=== PATIENT | female | born 1945 | race Caucasian/White ===

== ENCOUNTER 2021-03-10 05:51 | Day surgery (SDC) | payer MEDICARE, BC ==
[2021-03-03 15:35] LABS: BASOPHILS # (AUTO) 0.1 X10'3 (0-0.2); BASOPHILS % (AUTO) 1.3 % (0-1); EOSINOPHILS # (AUTO) 0.2 X10'3 (0-0.9); LYMPHOCYTES % (AUTO) 25.2 % (21-51); MEAN CORPUSCULAR HGB CONC 32.7 g/dL (33.0-36.5); MEAN CORPUSCULAR VOLUME 85.6 FL (78-98); MEAN PLATELET VOLUME 8.8 FL (7.4-10.4); MONOCYTES # (AUTO) 0.7 X10'3 (0-0.9); MONOCYTES % (AUTO) 9.1 % (2-12); NEUTROPHILS # (AUTO) 4.8 X10'3 (1.8-7.7); NEUTROPHILS % (AUTO) 61.4 % (42-75); PRE OP HEMOGLOBIN 13.7 g/dL (12.0-16.0); PRE OP PLATELET COUNT 257 X10'3 (140-440); RED BLOOD COUNT 4.91 X10'6 (4.20-5.60); RED CELL DISTRIBUTION WIDTH 15.3 % (11.5-14.5)
[2021-03-03 15:47] LABS: ALBUMIN 3.7 G/DL (3.4-5.0); ALBUMIN/GLOBULIN RATIO 1.1 (1.1-1.5); ALKALINE PHOSPHATASE 80 IU/L (46-116); BLOOD UREA NITROGEN 30 MG/DL (7-18); BUN/CREATININE RATIO 27.5 (6.6-38.0); CALCIUM 8.6 MG/DL (8.5-10.1); CHLORIDE 108 MMOL/L (99-107); CREATININE 1.09 MG/DL (0.40-0.90); PRE OP ALT 25 U/L (30-65); PRE OP ANION GAP 10 (8-16); PRE OP AST 14 U/L (10-37); PRE OP BILIRUB, TOTAL 0.2 MG/DL (0.0-1.0); PRE OP GLUCOSE 113 MG/DL (70-104); PRE OP POTASSIUM 3.9 MMOL/L (3.4-5.1); PRE OP SODIUM 146 MMOL/L (135-145); TOTAL CARBON DIOXIDE 27.9 MMOL/L (24-32); TOTAL PROTEIN 7.2 G/DL (6.4-8.2); eGFR 49 ML/MIN
[2021-03-10] VITALS (22 sets, daily range): BP systolic 125–154; BP diastolic 48–75
[~2021-03-10] VITALS: Ht 157.5 cm; Wt 78.2 kg
[~2021-03-10 05:51] MED LIST: ACET325T55 PO; ASCO500C17 PO; ASPI81TA52 PO; CELE-193 PO; CHOL500049 PO; FOLI0.4T6 PO; MULT-1085 PO; VITA400T10 PO; cefazolin/dext.iso 2gm/100ml IV ONE; famotidine 20mg tablet PO ONE; ringers solution, lacted 1,000 ML IV SCH; tranexamic acid 650mg tablet PO ONE; vancomycin 1,500 MG in NS 300ml IV soln IV ONE
[2021-03-10] MEDS ORDERED: ROPIVAcaine 0.5% (5mg/ml) 30ml vial ONE ×2 (06:57→08:49)
[2021-03-10] MEDS ORDERED: fentaNYL/PF 50MCG/1 ML 2ML syringe ONE (07:20)
[2021-03-10] MEDS ORDERED: sevoflurane 250ml liquid IH ONE (07:20)
[2021-03-10] MEDS ORDERED: midazolam 1 mg/ML 2ml injection ONE (07:21)
[2021-03-10] MEDS ORDERED: propofol inj 20 ML IV ONE (07:57)
[2021-03-10] MEDS ORDERED: LIDOcaine 1%/PF 5ML 10 MG/ML VIAL ONE (07:57)
[2021-03-10] MEDS ORDERED: rocuronium 10mg/ml inj IV ONE (07:57)
[2021-03-10] MEDS ORDERED: dexamethasone sod phosphate 4mg/ml inj. ONE ×2 (07:57→08:49)
[2021-03-10] MEDS ORDERED: ondansetron/PF 4mg/2ml inj IV PRN ×2 (08:25→09:25)
[2021-03-10] MEDS ORDERED: morphine 2 MG/ML inj. syringe IV PRN (08:25)
[2021-03-10] MEDS ORDERED: ROPIVAcaine 0.2%/PF PUMP/bolus 545 ML INTERSCALE SCH (08:25)
[2021-03-10] MEDS ORDERED: ROPIVAcaine 0.2% (10 MG/5 ML) BOLUS INJECTION INTERSCALE PRN (08:25)
[2021-03-10] MEDS ORDERED: ringers solution, lacted 1,000 ML IV SCH (08:25)
[2021-03-10] MEDS ORDERED: HYDROmorphone/PF 0.2 MG/ML SYRINGE IV PRN ×2 (08:25)
[2021-03-10] MEDS ORDERED: ePHEDrine 50MG/ML INJ. ONE (08:49)
[2021-03-10] MEDS ORDERED: neostigmine methylsulfate 1 MG/ML 10ml vial ONE (08:49)
[2021-03-10] MEDS ORDERED: glycopyrrolate 0.2mg/ml inj ONE (08:49)
[2021-03-10] MEDS ORDERED: ondansetron/PF 4mg/2ml inj ONE (08:49)
[2021-03-10] MEDS ORDERED: acetaminophen 1,000mg/100ml IV 100 ML IV ONE (08:49)
[2021-03-10] MEDS ORDERED: bisacodyl 10mg suppository rectal RC PRN (09:25)
[2021-03-10] MEDS ORDERED: oxyCODONE IR 5mg (immed. release) tablet PO PRN ×2 (09:25)
[2021-03-10] MEDS ORDERED: diphenhydrAMINE 25mg capsule PO PRN ×2 (09:25)
[2021-03-10] MEDS ORDERED: HYDROmorphone inj. 0.5 MG/0.5 ML DISP.SYRIN IV PRN (09:25)
[2021-03-10] MEDS ORDERED: magnesium hydroxide 30ml (MOM) UD suspension PO PRN (09:25)
[2021-03-10] MEDS ORDERED: acetaminophen 325mg tablet PO PRN ×2 (09:25)
[2021-03-10] MEDS ORDERED: HYDROmorphone 1 mg/ml syringe IV PRN (09:25)
[2021-03-10] MEDS ORDERED: potassium cl 20mEq in 1/2 NS 1,000 ML IV SCH (09:25)
--- NOTE | 2021-03-10 09:33 | NUR ---
Received from OR via BED, accompanied by Anesthesiologist DR AWAD and report given by Anesthesiologist AND QUAL RESEARCH MANAGER. PT DROWSY, DENIES PAIN. RIGHT SHOULDER W/DRSG CDI, POWDER PACK, SHOULDER WRAP, IMMOBILIZER ON AND IN PLACE. Addendum: 03/10/21 at 1020 by Alisha Kramer RN Amended: Links added.
--- NOTE | 2021-03-10 13:00 | NUR ---
DR AWAD IN TO SEE PT, DISCUSSED DISCHARGE ORDERS W/PT AND DEMONSTRATED RIGHT ARM EXERCISES, PT WAS ABLE TO DEMONSTRATE EXERCISES. PT UP TO BATHROOM, STEADY ON FEET, UNABLE TO VOID AT THIS TIME. Addendum: 03/10/21 at 1314 by Alisha Kramer RN Amended: Links added.
[2021-03-10] MEDS ORDERED: ceFAZolin 1000mg inj IV ONE (13:10)
[2021-03-10] MEDS ORDERED: ceFAZolin/D5W- 1GM premix 50 ML IV ONE ×2 (13:20)
[2021-03-10] MEDS ORDERED: acetaminophen 325mg tablet PO SCH (14:00)
--- NOTE | 2021-03-10 15:03 | NUR ---
PT UP AND ABLE TO VOID, D/C INSTRUCTIONS GIVEN AND GONE OVER W/PT WHO VERBALIZED UNDERSTANDING. PT D/CD TO HOME VIA W/C TO PRIVATE VEHICLE W/O INCIDENT. Addendum: 03/10/21 at 1704 by Alisha Kramer RN Amended: Links added.
[2021-03-10] MEDS ORDERED: ceFAZolin/D5W- 1GM premix 50 ML IV SCH (16:00)
[2021-03-10] MEDS ORDERED: vancomycin/NS 1 GM ADD-VANTAGE 250 ML IV SCH (20:00)
[2021-03-10] MEDS ORDERED: sennosides 8.6mg tablet PO SCH (21:00)
[2021-03-11] MEDS ORDERED: aspirin 81mg, enteric-coated 1 TAB TABLET.DR PO SCH (08:00)
[2021-03-11] MEDS ORDERED: folic acid 1mg tablet PO SCH (08:00)
[2021-03-11] MEDS ORDERED: multivitamins, therapeutics tablet PO SCH (08:00)
[2021-03-11] MEDS ORDERED: celeCOXIB 100mg capsule PO SCH ×2 (08:00→20:00)
[2021-03-11] MEDS ORDERED: ascorbic acid 500mg tablet PO SCH (08:00)
[2021-03-11] MEDS ORDERED: CHOLECALCIFEROL 5000 UNIT PO SCH (08:00)
[2021-03-11] MEDS ORDERED: vitamin E 400 unit capsule PO SCH (08:00)
[2021-03-11] MEDS ORDERED: aspirin 325mg tablet PO SCH (08:30)
== END 2021-03-10 15:03 | disposition home or self-care (01) ==
LOC: PAS 05:51 → UNDOADMIN 09:29 → PAS IN 09:29 → EDSTATUS 10:30 → PAS 15:03 → UNDODISIN 15:03
PROVIDERS: ATTEND Orthopaedic Surgery
DX: M75.121 Complete rotator cuff tear or rupture of right shoulder, not specified as traumatic (principal); M19.011 Primary osteoarthritis, right shoulder; M75.21 Bicipital tendinitis, right shoulder; M19.012 Primary osteoarthritis, left shoulder; E66.9 Obesity, unspecified; Z68.34 Body mass index [BMI] 34.0-34.9, adult; G47.33 Obstructive sleep apnea (adult) (pediatric); G89.18 Other acute postprocedural pain; Z20.822 Contact with and (suspected) exposure to COVID-19; Z79.899 Other long term (current) drug therapy; Z79.82 Long term (current) use of aspirin; Z88.5 Allergy status to narcotic agent; Z90.710 Acquired absence of both cervix and uterus; Z98.890 Other specified postprocedural states; Z96.653 Presence of artificial knee joint, bilateral; Z82.49 Family history of ischemic heart disease and other diseases of the circulatory system; Z83.3 Family history of diabetes mellitus; Z81.8 Family history of other mental and behavioral disorders
CPT/HCPCS: 23430; 23472; 36415; 64415; 73020; 76942; 80053; 82948; 85025; 87081; C1776; J0131; J0690; J1100; J2250; J2405; J2704; J2710; J2795; J3010; J3370; J7040; J7120; U0003; U0005; Z7506; Z7508; Z7512; A4565; A4618; A7000; J3490